=== PATIENT | female | born 1965 | race Two or more races ===

== ENCOUNTER 2025-02-09 17:46 | Emergency (ER) | payer BC, OTHER ==
[~2025-02-09] VITALS: Ht 162.6 cm; Wt 66.7 kg
[2025-02-09 18:24] VITALS: BP 162/80; PULSE 84; RESP 16; TEMP 98.5; O2SAT 95
--- NOTE | 2025-02-09 18:56 | ED.PDOC ---
History of Present Illness HPI Comments 59 y/o F presents with c/c left leg pain, with associated mild swelling behind knee. Patient reports on atraumatic, unprovoked, and sudden onset of symptoms, earlier, today. She endorses on no recent travel. Significant history of rheumatoid arthritis. She states on pain feeling like her typical rheumatoid a rthritis flare up but expresses concerns for possible DVT amidst no prior history of. Denies any shortness of breath, chest pain, leg numbness, tingling, or weakness, or further associated symptoms. Chief Complaint: Lower Extremity Time Seen by MD: 18:15 Reviewed Notes: Nurses Notes, Medications, Allergies Allergies: Coded Allergies: Latex (Verified Allergy, Unknown, 02/09/25) Information Source: Patient Mode of Arrival: Ambulatory Severity: Moderate Timing: Hours Duration: Since onset Prehospital treatment: None Past Medical History PAST MEDICAL HISTORY: Arthritis (rheumatoid ) Surgical History: Denies all surgeries BENEFITS OFFICER History: Denies all BENEFITS OFFICER Hx Family History Family History: Unknown Social History Smoker: Non-Smoker Alcohol: Denies ETOH Use Drugs: Denies Drug Use Lives In: Home All Other Systems: Reviewed and Negative (Comprehensive systems review obtained and negative except for what is stated in the HPI.) Physical Exam General Appearance: No Apparent Distress, Normal HEENT: Normal ENT Inspection, Pharynx Normal, TMs Normal Neck: Full Range of Motion, Non-Tender, Normal, Normal Inspection Respiratory: Chest Non-Tender, Lungs Clear, No Accessory Muscle Use, No Respiratory Distress, Normal Breath Sounds Cardiovascular: No Edema, No JVD, No Murmur, No Gallop, Normal Peripheral Pulses, Regular Rate/Rhythm Breast Exam: Deferred Gastrointestinal: No Organomegaly, Non Tender, No Pulsatile Mass, Normal Bowel Sounds, Soft Genitalia: Deferred Pelvic: Deferred Rectal: Deferred Extremities: No calf tenderness, Normal capillary refill, Normal inspection, Normal range of motion, No pedal edema, Tender (mild tenderness to posterior calf and knee on LLE) Musculoskeletal : Apperance: Normal Neurologic: Alert, telecom network manager II-XII nml as Tested, No Motor Deficits, Normal Affect, Normal Mood, No Sensory Deficits Cerebellar Function: Normal Reflexes: Normal Skin: Dry, Normal Color, Warm Lymphatic: No Adenopathy Was a procedure done? Was a procedure done?: No Differential Dx Considerations may include: rheumatoid arthritis, DJD, DVT, among others X-Ray, Labs, Meds, VS Vital Signs Date Time Temp Pulse Resp B/P (MAP) Pulse Ox O2 Delivery O2 Flow Rate FiO2 02/09/25 18:24 98.5 84 16 162/80 (107) 95 98.5 Time of 1ST Reevaluation: 18:45 Reevaluation 1ST: Unchanged Patient Education/Counseling: Diagnosis, Treatment, Need For Follow Up Family Education/Counseling: No Family Present SEPSIS Sepsis Screen Date sepsis recognized/suspect: Feb 09, 2025 Time Sepsis recognized/suspect: 1819 Recent Procedure: No On Antibiotic Therapy: No Respiratory Rate >20: No Heart Rate >90: No Temp<36 C (96.8 F) or >38.3 C: No SBP <90 or MAP <65 mmHG: No New Acute Mental Status Change: No Is the patient on CPAP, BIPAP,: No Physician Orders Lt Lower Dvt (02/09/25 18:29) Vital Signs Date Time Temp Pulse Resp B/P (MAP) Pulse Ox O2 Delivery O2 Flow Rate FiO2 02/09/25 18:24 98.5 84 16 162/80 (107) 95 98.5 Departure 1 Departure Time of Disposition: 19:27 Impression: Primary Impression: Torres's cyst of knee Additional Impression: Rheumatoid arthritis Disposition: 01 HOME / SELF CARE / HOMELESS Condition: Stable Discharged With: Self Critical Care Note Critical Care Time?: No Stability Stability form required: No Heart Score Heart Score: Heart Score Response (Comments) Value History N/A 0 EKG N/A 0 Age N/A 0 Risk Factors N/A 0 Troponin N/A 0 Total 0 I personally scribed for CHAU GOMEZ MD ([email or web address]) on 02/09/25 at 18:56. Electronically submitted by Cuba Moseley ([email or web address]). CHAU GOMEZ MD Feb 09, 2025 18:56
--- NOTE | 2025-02-09 19:08 | DVH ---
CLINICAL HISTORY: left posterior leg pain TECHNIQUE: Color and duplex doppler imaging of the left lower extremity veins was performed. Vessel c ompression if possible was also performed. WID: COMPARISON: None FINDINGS: Left common femoral vein: Normal compressibility and flow. Left femoral vein: Normal compressibility and flow. Left popliteal vein: Normal compressibility and flow. Proximal calf veins are normally compressible. IMPRESSION: NO SONOGRAPHIC EVIDENCE FOR DEEP VENOUS THROMBOSIS IN THE LEFT LOWER EXTREMITY VEINS.
== END 2025-02-09 19:20 | disposition home or self-care (01) ==
LOC: ER 17:46
DX: M71.22 Synovial cyst of popliteal space [Baker], left knee (principal); M06.9 Rheumatoid arthritis, unspecified; Z91.040 Latex allergy status
CPT/HCPCS: 93971